=== PATIENT | female | born 1940 | race Caucasian/White ===

== ENCOUNTER 2017-02-18 19:02 | Emergency (ER) ==
[2017-02-18 19:02] VITALS: BMI 31.8
[2017-02-18 19:12] VITALS: BP 159/83; TEMP 98.5
[2017-02-18 19:38] LABS: BASOPHILS # (AUTO) 0.1 K/uL (0-0.2); BASOPHILS % (AUTO) 0.5 % (0.0-3.0); EOSINOPHILS # (AUTO) 0.2 K/ul (0.0-0.7); EOSINOPHILS % (AUTO) 1.5 % (0.0-7.0); HEMATOCRIT 44.2 % (37.0-47.0); HEMOGLOBIN 14.3 g/dl (12.0-16.0); IMMATURE GRANULOCYTE % (AUTO) 0.4 % (0.0-5.0); LYMPHOCYTES % (AUTO) 24.8 (10.0-50.0); MEAN CORPUSCULAR HGB CONC 32.4 (31.8-35.4); MEAN CORPUSCULAR VOLUME 95.9 fl (81.0-99.0); MONOCYTES % (AUTO) 8.4 (0-10); NEUTROPHILS # (AUTO) 7.9 K/ul (2.0-6.9); NEUTROPHILS % (AUTO) 64.4; PLATELET COUNT 177 10^3/uL (140-440); RED BLOOD COUNT 4.61 10^6/ul (4.20-5.40); WHITE BLOOD COUNT 12.24 K/ul (4.6-10.2)
[2017-02-18 19:38] LABS: BILIRUBIN,URINE Negative (NEGATIVE); KETONES,URINE Negative (NEGATIVE); LEUKOCYTE ESTERASE ,URINE 1+ (NEGATIVE); NITRITE,URINE Negative (NEGATIVE); PROTEIN,URINE 1+ (NEGATIVE); URINE, BLOOD Trace-lysed (NEGATIVE)
[2017-02-18 19:46] LABS: ADD URINE MICROSCOPIC YES
[2017-02-18 19:47] LABS: BACTERIA,URINE 1+ (NOT PRESENT)
[2017-02-18 19:56] LABS: ALBUMIN 3.8 g/dL (3.4-5.0); ALBUMIN/GLOBULIN RATIO 0.97; ANION GAP 13.2; BILIRUBIN,TOTAL 0.56 mg/dL (0.00-1.20); BUN/CREATININE RATIO 17.77; CALCIUM 9.5 mg/dL (8.2-10.2); CREATININE 0.9 mg/dL (0.60-1.30); POTASSIUM 4.2 mmol/L (3.5-5.10); TOTAL PROTEIN 7.7 g/dL (5.8-8.1)
--- NOTE | 2017-02-18 20:16 | CT ---
EXAM: CT of the abdomen and pelvis without contrast. HISTORY: Left lower quadrant pain. History of diverticulitis. PROCEDURE: Contiguous axial CT images of the abdomen and pelvis without contrast with coronal and s agittal reformats. FINDINGS: The liver is normal in appearance. The gallbladder is not visualized consistent with cho lecystectomy. The pancreas, spleen, adrenal glands and right kidney are normal in appearance. Ther e is a fluid density cyst in the left kidney. The abdominal aorta is within normal limits in diamete r. There is diverticulosis of the colon with no evidence of diverticulitis. The appendix is not vis ualized. No free fluid or free air in the abdomen or pelvis. The bladder is decompressed which limit s the evaluation. Uterus is unremarkable. There are degenerative changes in the spine. Impression: Diverticulosis of the colon without diverticulitis. Cholecystectomy. Simple left renal cyst.
--- NOTE | 2017-02-18 20:21 | CT ---
EXAM: CT lumbar spine without contrast. HISTORY: Lower back pain COMPARISON: CT abdomen pelvis same day and numerous priors TECHNIQUE: Serial axial images of the spine were obtained from the lower thoracic spine through the pelvis without contrast. These were viewed in multiple planes. FINDINGS: There is no acute compression fracture or subluxation. There is scattered multilevel fac et arthropathy. There are scattered posterior anterior disc osteophytes present. Disc spaces are m aintained. The lumbosacral junction is intact. There is no evidence of scoliosis. Limited view of the sacrum is normal. L1-L2: Normal L2-L3: Broad-based disc bulge with osteophyte and facet arthropathy with mild central and moderate r ight neural foraminal narrowing. L3-L4: Broad-based disc bulge and facet arthropathy with mild central and bilateral neural foraminal narrowing. L4-L5: Broad-based disc bulge with facet arthropathy and osteophyte formation with mild central narr owing. L5-S1: Broad-based disc bulge and facet arthropathy with no central or neural foraminal narrowing. Limited views of the soft tissues demonstrate increased attenuation 0.7 cm round density in the left kidney. There is moderate scattered atherosclerotic disease. IMPRESSION: 1. No acute compression fracture or subluxation. 2. Multilevel degenerative disease of the spine with areas of mild and moderate central and neural foraminal narrowing as enumerated above. 3. Increased attenuation lesion of the right kidney is better evaluated on same day CT abdomen pelv is.
[2017-02-18 20:24] LABS: ERYTHROCYTE SEDIMENTATION RATE 44 mm/hr (0-20); ESR INTERNAL QC INTERNAL QC VALID
[2017-02-18] MEDS ORDERED: TYLENOL PO STA (20:38)
--- NOTE | 2017-02-18 20:41 | ED.PDOC ---
General ED Provider: Dr. MARIVEL NEELY-ER Chief Complaint: Back Pain Stated Complaint: my lower back hurts Time Seen by Physician: 19:10 Mode of Arrival: Wheelchair Information Source: Patient, Family Exam Limitations: No limitations [facility] and Triage Documentation Reviewed and Agree: Yes Musculoskeletal Complaint Exam - Back Pain Complaint/Exam Mechanism of Injury: Reports: No known trauma Onset/Duration: 2 dasy Symptoms Are: Still present Timing: Intermittent Initial Severity: Mild Current Severity: Mild Location: Reports: Discrete (lumbar spine) Character: Reports: Dull, Aching, Stiffness Aggravating: Reports: Movements, Lifting, Bending Alleviating: Reports: None Associated Signs and Symptoms: Denies: Swelling, Redness, Bruising, Fever, Weakness, Numbness, Tingling, Abdominal pain, Flank pain, Bladder incontinence, Bowel incontinence, Weight loss, Pain with weight bearing Focal Tenderness: Yes Paraspinal Muscle Tenderness: No Paraspinal Muscle Spasm: No Scoliosis: No Lordosis: No Kyphosis: No SLR Test: Right Negative, Left Negative Hip Motion Testing Pain: Right Negative, Left Negative Focal Weakness: Present: None Focal Sensory Loss: Present: None Gait: Present: Normal Differential Diagnoses: Herniated Disk, Strain, Sprain Review of Systems - Review Of Systems Constitutional: Reports: No symptoms Eyes: Reports: No symptoms Ears, Nose, Mouth, Throat: Reports: No symptoms Respiratory: Reports: No symptoms Cardiac: Reports: No symptoms GI: Reports: No symptoms : Reports: No symptoms Musculoskeletal: Reports: Back pain Skin: Reports: No symptoms Neurological: Reports: No symptoms Endocrine: Reports: No symptoms Hematologic/Lymphatic: Reports: No symptoms All Other Systems: Reviewed and Negative Past Medical History - Past Medical History Previously Healthy: Yes Endocrine: Reports: None Cardiovascular: Reports: None Respiratory: Reports: None Hematological: Reports: None Gastrointestinal: Reports: Gallstones, Other (Diverticulosis) Genitourinary: Reports: None Neuro/Psych: Reports: None Musculoskeletal: Reports: None Cancer: Reports: None Last Menstrual Period: NA - Surgical History General Surgical History: Reports: Appendectomy, Cholecystectomy - Family History Family History: Reports: Unknown - Social History Smoking Status: Never smoker Hx Substance Use: No Alcohol Screening: None Lives: With family - Immunizations Tetanus Shot up to Date: No Physical Exam - Physical Exam Appearance: Well-appearing, No pain distress, Well-nourished Pain Distress: Mild Eyes: JANESSA, EOMI, Conjunctiva clear ENT: Ears normal, Nose normal, Oropharynx normal Neck: Supple Respiratory: Airway patent Cardiovascular: RRR GI/: Soft, Nontender, No masses, Bowel sounds normal, No Organomegaly Musculoskeletal: Limited ROM Skin: Warm, Dry, Normal color Neurological: Sensation intact, Motor intact, Reflexes intact, Cranial nerves intact, Alert, Oriented Psychiatric: Affect appropriate, Mood appropriate Interpretation - Radiology Interpretation Radiology Interpretation By: Radiologist Radiology Results: Positive Exam Interpreted: CT Scan Re-Evaluation - Re-Evaluation Time of Re-Evaluation: 20:40 Status: Improved (i dont hurt unless i move) Vital Signs Stable: Yes Pain Level: 2 Appearance: NAD Lungs: Clear Skin: Warm and Dry Neuro: Alert and Oriented X3 CV: RRR Critical Care Note - Critical Care Note Total Time (mins): 0 Course - Course Hematology/Chemistry: 02/18/17 19:33 02/18/17 19:33 Orders, Labs, Meds: Lab Review 02/18/17 02/18/17 19:25 19:33 WBC 12.24 H RBC 4.61 Hgb 14.3 Hct 44.2 MCV 95.9 MCH 31.0 MCHC 32.4 RDW Coeff of Arturo 13.4 Plt Count 177 Immature Gran % (Auto) 0.4 Neut % (Auto) 64.4 Lymph % (Auto) 24.8 Clark % (Auto) 8.4 Eos % (Auto) 1.5 Baso % (Auto) 0.5 Immature Gran # (Auto) 0.1 Neut # 7.9 H Lymph # 3.0 Clark # 1.0 Eos # 0.2 Baso # 0.1 ESR 44 H Sodium 142 Potassium 4.2 Chloride 105 Carbon Dioxide 28 Anion Gap 13.2 BUN 16 Creatinine 0.90 Estimated GFR (MDRD) 61.00 BUN/Creatinine Ratio 17.77 Glucose 97 Calcium 9.5 Total Bilirubin 0.56 AST 17 ALT 18 Alkaline Phosphatase 68 Total Protein 7.7 Albumin 3.8 Globulin 3.9 Albumin/Globulin Ratio 0.97 Amylase 42 Lipase 41 Urine Color Yellow Urine Clarity Slightly Urine pH 6.0 Ur Specific Clio 1.020 Urine Protein 1+ Urine Glucose (UA) Negative Urine Ketones Negative Urine Blood Trace-lysed Urine Nitrite Negative Urine Bilirubin Negative Urine Urobilinogen 0.2 Ur Leukocyte Esterase 1+ Urine Microscopic RBC 0-2 Urine Microscopic WBC 2-5 Ur Squamous Epith Cells 5-10 Amorphous Sediment 1+ Urine Bacteria 1+ Hyaline Casts 0-2 Orders Category Date Time Status AMYLASE Stat LAB 02/18/17 19:33 Completed BLOOD CULTURE Stat LAB 02/18/17 19:33 Received CBC W/ AUTO DIFF Stat LAB 02/18/17 19:33 Completed COMPREHENSIVE METABOLIC PANEL Stat LAB 02/18/17 19:33 Completed ESR Stat LAB 02/18/17 19:33 Completed LIPASE Stat LAB 02/18/17 19:33 Completed URINALYSIS C & S IF INDICATED Stat LAB 02/18/17 19:25 Completed URINE CULTURE Stat LAB 02/18/17 19:25 Received Acetaminophen [Tylenol] MEDS 02/18/17 20:38 Stat 650 mg PO ONCE STA CT ABDOMEN/PELVIS WO CONTRAST Stat RADS 02/18/17 19:[address] LUMBAR SPINE W/O CONTRAST Stat RADS 02/18/17 19:18 Completed Medications Generic Name Dose Route Start Last Admin Trade Name Joon PRN Reason Stop Dose Admin Acetaminophen 650 mg 02/18/17 20:38 Tylenol PO 02/18/17 20:39 ONCE STA Vital Signs: Temp Pulse Resp BP Pulse Ox 02/18/17 19:03 98.5 F 73 18 159/83 H 95 Departure - Departure Time of Disposition: 20:41 Disposition: HOME SELF-CARE Discharge Problem: Backache Instructions: Back Pain (ED) Condition: Good Pt referred to PMD for follow-up: Yes Additional Instructions: use tylenol for pain--f/u with pcp and discuss renal cyst on left kidney Allergies/Adverse Reactions: Allergies No Known Allergies Allergy (Verified 02/18/17 19:19) Home Medications: Ambulatory Orders Cyanocobalamin (Vitamin B-12) [Vitamin B-12] 250 mcg PO DAILY 09/11/15 Multivitamin [Multi-Vitamin Daily] 1 each PO DAILY 09/11/15 [place]-3 Fatty Acids [Fish Oil] 500 mg PO DAILY 09/11/15 Ascorbic Acid [Vitamin C] 250 mg PO DAILY 09/24/16 Calcium Carb/D3/Magnesium/Zinc [Erick Mag Zinc + D Tablet] 1 each PO DAILY Flaxseed Oil [Flax Seed Oil] 1,000 mg PO DIRECTED 09/24/16 Garlic 1 each PO WEEKLY 09/24/16 Vitamin B Complex [B Complex] 1 each PO DAILY 09/24/16 Yeast [Nascimento's Yeast] 680 mg PO DAILY 09/24/16 Zinc 50 mg PO DAILY 09/24/16 Disposition Discussed With: Patient, Family
== END 2017-02-18 20:53 | disposition home or self-care (01) ==
LOC: ED 19:02
DX: M54.5 Low back pain (principal); Z79.899 Other long term (current) drug therapy
CPT/HCPCS: 36415; 80053; 81001; 82150; 83690; 85025; 85651; 87040; 87086; 99283

== ENCOUNTER 2019-04-12 13:08 | Outpatient (CLI) | END 2019-04-12 13:09 | disposition home or self-care (01) | LOC: RHC-LAB 13:08 | PROVIDERS: ATTEND General Practice | DX: D72.829 Elevated white blood cell count, unspecified (principal); Z79.899 Other long term (current) drug therapy; Z01.818 Encounter for other preprocedural examination | CPT/HCPCS: 36415; 80053; 80061; 81001; 84443; 85025 ==

== ENCOUNTER 2019-04-19 08:23 | Outpatient (CLI) ==
--- NOTE | 2019-04-19 12:12 | DI ---
EXAM: CHEST FRONTAL AND LATERAL VIEWS HISTORY: Elevated white blood cell count. COMPARISON: 03/22/2015 FINDINGS: Heart size is within normal limits. Atherosclerotic disease is noted. There is diffuse, chronic appearing interstitial accentuation. No acute infiltrates are seen. No vascular congestion. There is no consolidation, visible pleural fluid or pneumothorax. Bones reveal no acute fracture. IMPRESSION: No acute cardiopulmonary process.
== END 2019-04-19 08:24 | disposition home or self-care (01) ==
LOC: RAD 08:23
PROVIDERS: ATTEND General Practice
DX: D72.829 Elevated white blood cell count, unspecified (principal); Z01.818 Encounter for other preprocedural examination
CPT/HCPCS: 93005; 93010

== ENCOUNTER 2019-05-01 06:07 | Day surgery (SDC) | payer OTHER ==
[2019-05-01] MEDS: TETRACAINE 0.5% UNIT-DOSE OP PRN ×4 (07:27→09:53)
[2019-05-01] MEDS: CYCLOGYL 2% OPTH OP PRN ×3 (07:27→07:37)
[2019-05-01] MEDS: AK-DILATE 10% OPTH SOL OP PRN ×3 (07:27→07:37)
[2019-05-01] MEDS: OCUFEN 0.03% OPTH SOL OP PRN ×4 (07:28→10:08)
[2019-05-01] MEDS ORDERED: DIAMOX PO STA (07:51)
[2019-05-01 07:56] VITALS: TEMP 97.7
[2019-05-01] MEDS: LIDOCAINE 1% 20 ML MDV ID STA ×2 (09:30→09:54)
[2019-05-01] MEDS ORDERED: VERSED ONE (09:45)
[2019-05-01] MEDS ORDERED: DIAMOX ONE (10:20)
[2019-05-01 13:07] VITALS: BP 135/68
--- NOTE | 2019-05-01 14:10 | OP ---
PREOPERATIVE DIAGNOSIS: VISUALLY SIGNIFICANT NUCLEAR SCLEROTIC CORTICAL CATARACT , LEFT EYE. POSTOPERATIVE DIAGNOSIS: SAME. OPERATION PHACOEMULSIFICATION ASPIRATION OF CATARACT LEFT EYE. PLACEMENT OF POSTERIOR CHAMBER LENS. PHACO TIME 37.0 SECONDS AT 8.0% POWER. LENS MODEL TECNIS XV2227. DIOPTER +24.5D. TECHNIQUE: CLEAR CORNEA. ANESTHESIA: TOPICAL ANESTHESIA W/ANESTHESIA MONITORING. OPERATIVE REPORT: Topical anesthesia consisting of Tetracaine was applied to the cornea and Xylocaine Methyl Paraben free of MFP was injected intracamerally into the anterior chamber. The patient was then brought into the operating room , prepped and draped in the usual ophthalmic manner. A lid speculum was placed and the operating microscope was used. A paracentesis was made at the 3 o' clock position. A clear corneal incision was made just out to the limbus. The anterior chamber was entered just inside the clear cornea. Viscoelastic was injected into the anterior chamber. A capsulotomy was performed with a bent # 27 gauge needle. Phacoemulsification was then performed in the posterior chamber. After completion of the phacoemulsification, residual cortical material was aspirated with the irrigation-aspiration system. The posterior capsule was polished. Viscoelastic was injected into the anterior and posterior chambers to inflate the capsular bag. Lens were placed via an Unfolder system and stabilized in the bag. Viscoelastic was removed from the anterior chamber. The wound was checked for any leakage. The four sponges were removed from the fornix. Topical antibiotic steroid and nonsteroidal drops were also applied to the cornea. A Morton shield was applied. The patient left the operating room in good condition without any complications. INTRAOPERATIVE MEDICATIONS: Xylocaine Methyl Paraben Free MPF MTDD
== END 2019-05-01 11:00 | disposition home or self-care (01) ==
LOC: SURG 06:07
PROVIDERS: ATTEND Ophthalmology
DX: H25.13 Age-related nuclear cataract, bilateral (principal); H25.013 Cortical age-related cataract, bilateral; H35.3131 Nonexudative age-related macular degeneration, bilateral, early dry stage